=== PATIENT | female | born 1960 | race Two or more races ===

== ENCOUNTER 2021-12-30 02:18 | Emergency (ER) | payer SELFPAY ==
[~2021-12-30] VITALS: Ht 167.6 cm; Wt 99.8 kg
[2021-12-30 03:32] LABS: Basophils # (auto) 0.1 10 ^3/uL (0-0.2); Eosinophils # (auto) 0 10 ^3/uL (0-0.8); Monocytes # (auto) 0.8 10 ^3/uL (0-1.3)
[2021-12-30 03:33] LABS: Basophils % (auto) 0.6 % (0.0-2.0); Eosinophils % (auto) 0.4 % (0.0-7.0); Lymphocytes # (auto) 1.2 10 ^3/uL (0.4-5.4); Lymphocytes % (auto) 11.6 % (10.0-50.0); Mean Corpuscular Hemoglobin 27.1 pg (28.0-32.0); Mean Corpuscular Hgb Conc. 33.3 g/dL (32.0-36.0); Mean Corpuscular Volume 81.6 fL (80.0-100.0); Monocytes % (auto) 7.3 % (0.0-12.0); Neutrophils # (auto) 8.2 10 ^3/uL (1.6-8.6); Neutrophils % (auto) 80.1 % (37.0-80.0); Nucleated Red Blood Cells % 0.1 %; Red Blood Cells 5.15 10^6/uL (4.0-5.20); Red Cell Distribution Width 13.9 % (11.8-14.3); White Blood Cell 10.3 10^3/uL (4.4-10.8)
[2021-12-30 03:46] LABS: BUN/Creatinine Ratio 22.4; Calcium 10.2 mg/dL (8.5-10.1); Potassium 3.4 mmol/L (3.5-5.1)
[2021-12-30 03:48] LABS: Bilirubin, Total 0.7 mg/dL (0.2-1.0)
[2021-12-30] MEDS ORDERED: IOHEXOL 350 MG/ML 100ML IJ ONE (04:16)
[2021-12-30 06:51] LABS: Urine Bacteria None Seen /hpf (None Seen); Urine WBC None Seen /hpf (0 - 5)
[2021-12-30 07:05] LABS: Urine Blood Negative /uL (Negative)
[2021-12-30 07:14] LABS: Urine Specific Gravity > 1.050 (1.001-1.035)
[2021-12-30] MEDS ORDERED: GASTROGRAFIN 120 ML SOL ONE (11:35)
[2021-12-30 14:08] VITALS: BP 134/80
== END 2021-12-30 18:25 | disposition home or self-care (01) ==
LOC: ER 02:18
DX: K56.609 Unspecified intestinal obstruction, unspecified as to partial versus complete obstruction (principal); Z98.890 Other specified postprocedural states
CPT/HCPCS: 36415; 71045; 74177; 74250; 80053; 81001; 83690; 85025; 93005; 99285; Q9963; Q9967